=== PATIENT | female | born 1965 | race Caucasian/White ===

== ENCOUNTER 2017-03-04 09:53 | Emergency (ER) | payer BC ==
--- NOTE | 2017-03-04 10:07 | UC ---
Complaint Female HPI - HPI Summary HPI Summary: c/o dysuria, flank pain, hematuria for past few days. drinking but not much water at this time. not taking anything otc at this time. - History Of Current Complaint Chief Complaint: UCGU Stated Complaint: BLOOD IN URINE Time Seen by Provider: 03/04/17 10:02 Hx Obtained From: Patient Onset/Duration: Sudden Onset Timing: Constant Severity Initially: Moderate Character: Burning Aggravating Factor(s): Urination Associated Signs And Symptoms: Positive: Back Pain - Risk Factors Ectopic Risk Factor: Negative - Allergies/Home Medications Allergies/Adverse Reactions: Allergies Allergy/AdvReac Type Severity Reaction Status Date / Time Penicillin G Allergy Unknown Verified 03/04/17 10:05 Reaction Details Povidone Iodine Allergy Rash Verified 03/04/17 10:05 [From Betadine] PMH/Surg Hx/FS Hx/Imm Hx Previously Healthy: Yes Psychological History: Depression - insomnia - Surgical History Surgical History: Yes Surgery Procedure, Year, and Place: LAPAROSCOPY, [facility]. 03/2014 [place] [facility] [place] Social History Alcohol Use: Rare Substance Use Type: None Smoking Status (MU): Heavy Every Day Tobacco Smoker Type: Cigarettes Length of Time of Smoking/Using Tobacco: 37 YEARS Have You Smoked in the Last Year: Yes When Did the Patient Quit Smoking/Using Tobacco: 1/2 PACK PER DAY Review of Systems Constitutional: Negative Skin: Negative Eyes: Negative ENT: Negative Respiratory: Negative Cardiovascular: Negative Gastrointestinal: Negative Genitourinary: Dysuria, Hematuria, Frequency, Other - flank pain Neurovascular: Negative Is Patient Immunocompromised?: No All Other Systems Reviewed And Are Negative: Yes Physical Exam Triage Information Reviewed: Yes Appearance: Well-Appearing Vital Signs Reviewed: Yes Respiratory Exam: Normal Cardiovascular Exam: Normal Abdominal Exam: Normal Psychological Exam: Normal Skin Exam: Normal Complaint Female Dx - Course Course Of Treatment: urine culture + for UTI. take abx as directed - discussed use and common side effects of med. increase fluid intake while on abx to prevent dehydration. f/u pcp 1 week if symptoms not resolving or getting worse - Differential Dx/Diagnosis Provider Diagnoses: UTI Discharge - Discharge Plan Condition: Good Disposition: HOME Prescriptions: Sulfamethox/Trimethoprim DS* [Bactrim DS 800/160 TAB*] 1 tab PO BID 7 Days #14 tab Patient Education Materials: Urinary Tract Infection in Women (ED) Referrals: Tito Cisneros MD [Primary Care Provider] - 1 Week
[2017-03-04 10:09] VITALS: BP 122/77
== END 2017-03-04 10:40 | disposition home or self-care (01) ==
LOC: UCCORT 09:53
DX: N39.0 Urinary tract infection, site not specified (principal); B96.20 Unspecified Escherichia coli [E. coli] as the cause of diseases classified elsewhere; Z72.0 Tobacco use
CPT/HCPCS: 81003; 87077; 87086; 87186; 99212; G0463

== ENCOUNTER 2017-12-14 12:06 | Emergency (ER) | payer BC, OTHER ==
[2017-12-14 12:40] VITALS: BP 113/86
--- NOTE | 2017-12-14 12:59 | ED ---
Lower Extremity - HPI Summary HPI Summary: 52 yr old female with right knee pain. Location lateral right knee. Onset of pain 2 months ago. She was kneeling and states she felt a pop. She feels like her right knee cap is not stable all the time. No other complaints. Pain is moderate. no swelling, fever or bruising or redness. - History of Current Complaint Chief Complaint: UCLowerExtremity Stated Complaint: WC - RIGHT KNEE INJURY Time Seen by Provider: 12/14/17 12:38 Hx Last Menstrual Period: n/a Pain Intensity: 6 - Allergies/Home Medications Allergies/Adverse Reactions: Allergies Allergy/AdvReac Type Severity Reaction Status Date / Time Penicillins Allergy Unknown Verified 12/14/17 12:36 Reaction Details povidone-iodine Allergy Rash Verified 12/14/17 12:36 [From Betadine] soap [From Betadine] Allergy Rash Verified 12/14/17 12:36 Home Medications: Home Medications Amitriptyline TAB* [Elavil TAB*] 100 mg PO BEDTIME 12/14/17 [History Confirmed 12/14/17] PMH/Surg Hx/FS Hx/Imm Hx GI History: Reports: Hx Gastroesophageal Reflux Disease - CONTROL WITH MED Musculoskeletal History: Reports: Hx Arthritis - BACK Sensory History: Reports: Hx Contacts or Glasses - GLASSES FOR DRIVING Denies: Hx Hearing Aid Opthamlomology History: Reports: Hx Contacts or Glasses - GLASSES FOR DRIVING Neurological History: Comment Only: Other Neuro Impairments/Disorders - POST TRAUMATIC STRESS DISORDER (PTSD) Psychiatric History: Reports: Hx Anxiety - CONTROL WITH MEDS, Hx Depression - CONTROL WITH MEDS - Surgical History Surgery Procedure, Year, and Place: LAPAROSCOPY, [facility]. 03/2014 RIGHT ENDOSCOPIC CARPAL TUNNEL RELEASE, [facility] Hx Anesthesia Reactions: No Infectious Disease History: No Infectious Disease History: Denies: Traveled Outside the [place] in Last 30 Days - Family History Known Family History: Positive: None - Social History Alcohol Use: Rare Substance Use Type: Reports: None Smoking Status (MU): Heavy Every Day Tobacco Smoker Type: Cigarettes Amount Used/How Often: <1 PPD Length of Time of Smoking/Using Tobacco: 37 YEARS Have You Smoked in the Last Year: Yes Review of Systems Constitutional: Negative Positive: Other - right knee lateral pain All Other Systems Reviewed And Are Negative: Yes Physical Exam Triage Information Reviewed: Yes Vital Signs On Initial Exam: Initial Vitals Temp Pulse Resp BP Pulse Ox 98.4 F 74 14 113/86 99 12/14/17 12:33 12/14/17 12:33 12/14/17 12:33 12/14/17 12:33 12/14/17 12:33 Vital Signs Reviewed: Yes Appearance: Positive: Well-Appearing, No Pain Distress Skin: Positive: Warm, Skin Color Reflects Adequate Perfusion Head/Face: Positive: Normal Head/Face Inspection Eyes: Positive: EOMI ENT: Positive: Normal ENT inspection Neck: Positive: Nontender Respiratory/Lung Sounds: Positive: Clear to Auscultation, Breath Sounds Present Cardiovascular: Positive: RRR. Negative: Leg Edema Left, Leg Edema Right Abdomen Description: Negative: Distended Musculoskeletal: Positive: Strength/ROM Intact, Other - tender over the lateral knee, lateral collateral ligament right knee. Patella is stable. No joint effusion of the right knee. No redness, no increased warmth. Neurological: Positive: Sensory/Motor Intact, Alert, Oriented to Person Place, Time, CN Intact II-III Psychiatric: Positive: Normal - Abdulaziz Coma Scale Best Eye Response: 4 - Spontaneous Best Motor Response: 6 - Obeys Commands Best Verbal Response: 5 - Oriented Coma Scale Total: 15 Diagnostics - Vital Signs Vital Signs Temp Pulse Resp BP Pulse Ox 12/14/17 12:33 98.4 F 74 14 113/86 99 - Laboratory Lab Statement: Any lab studies that have been ordered have been reviewed, and results considered in the medical decision making process. - Radiology knee right Xray Interpretation: No Acute Changes Radiology Interpretation Completed By: Radiologist Lower Extremity Course/Dx - Course Course Of Treatment: 52 yr old with right knee pain. refer to ortho for further eval. - Diagnoses Provider Diagnoses: Sprain of collateral ligament of right knee Discharge - Sign-Out/Discharge Documenting (check all that apply): Patient Departure All imaging exams completed and their final reports reviewed: Yes - Discharge Plan Condition: Good Disposition: HOME Patient Education Materials: Knee Sprain (ED) Referrals: Tito Cisneros MD [Primary Care Provider] - Gio Lomas MD [Medical Doctor] - 2 Days - Billing Disposition and Condition Condition: GOOD Disposition: Home
--- NOTE | 2017-12-14 13:40 | RAD ---
INDICATION: Right knee pain. TECHNIQUE: 4 views of the right knee were obtained. FINDINGS: The bones are in normal alignment. No joint effusion or fracture is seen. Joint spaces appear maintained. IMPRESSION: NO EVIDENCE FOR FRACTURE.
== END 2017-12-14 14:03 | disposition home or self-care (01) ==
LOC: UCCORT 12:06
DX: S83.401A Sprain of unspecified collateral ligament of right knee, initial encounter (principal); X50.0XXA Overexertion from strenuous movement or load, initial encounter; Y93.89 Activity, other specified; Y92.9 Unspecified place or not applicable; Z88.0 Allergy status to penicillin; K21.9 Gastro-esophageal reflux disease without esophagitis; F17.210 Nicotine dependence, cigarettes, uncomplicated
CPT/HCPCS: 99211; G0463

== ENCOUNTER 2018-09-23 12:01 | Emergency (ER) | payer BC, OTHER ==
[2018-09-23 12:24] VITALS: BP 107/70
--- NOTE | 2018-09-23 12:34 | ED ---
Throat Pain/Nasal Congestion - HPI Summary HPI Summary: 53 yr old female with the complaint of stye lower right medial eyelid. Onset about two weeks ago, with initially a pimple on the outside lower medial eyelid , that drained some pus, but now on the inside of the eyelid area there is an inside stye that is persisting. No change in vision. - History of Current Complaint Chief Complaint: UCEye Time Seen by Provider: 09/23/18 12:18 - Allergies/Home Medications Allergies/Adverse Reactions: Allergies Allergy/AdvReac Type Severity Reaction Status Date / Time Penicillins Allergy Unknown Verified 09/23/18 12:19 Reaction Details povidone-iodine Allergy Rash Verified 09/23/18 12:19 [From Betadine] soap [From Betadine] Allergy Rash Verified 09/23/18 12:19 PMH/Surg Hx/FS Hx/Imm Hx GI History: Reports: Hx Gastroesophageal Reflux Disease - CONTROL WITH MED Musculoskeletal History: Reports: Hx Arthritis - BACK Sensory History: Reports: Hx Contacts or Glasses - GLASSES FOR DRIVING Denies: Hx Hearing Aid Opthamlomology History: Reports: Hx Contacts or Glasses - GLASSES FOR DRIVING Neurological History: Comment Only: Other Neuro Impairments/Disorders - POST TRAUMATIC STRESS DISORDER (PTSD) Psychiatric History: Reports: Hx Anxiety - CONTROL WITH MEDS, Hx Depression - CONTROL WITH MEDS - Surgical History Surgery Procedure, Year, and Place: LAPAROSCOPY, [facility]. 03/2014 RIGHT ENDOSCOPIC CARPAL TUNNEL RELEASE, [facility] Hx Anesthesia Reactions: No Infectious Disease History: No Infectious Disease History: Denies: Traveled Outside the [place] in Last 30 Days - Family History Known Family History: Positive: None - Social History Alcohol Use: Rare Substance Use Type: Reports: None Smoking Status (MU): Heavy Every Day Tobacco Smoker Type: Cigarettes Amount Used/How Often: <1 PPD Length of Time of Smoking/Using Tobacco: 37 YEARS Have You Smoked in the Last Year: Yes Review of Systems Constitutional: Negative Positive: Other - stye. Negative: Blurred Vision All Other Systems Reviewed And Are Negative: Yes Physical Exam Triage Information Reviewed: Yes Vital Signs On Initial Exam: Initial Vitals Temp Pulse Resp BP Pulse Ox 98.3 F 78 16 107/70 99 09/23/18 12:20 09/23/18 12:20 09/23/18 12:20 09/23/18 12:20 09/23/18 12:20 Vital Signs Reviewed: Yes Appearance: Positive: Well-Appearing, No Pain Distress Skin: Positive: Warm, Skin Color Reflects Adequate Perfusion Eyes: Positive: EOMI, FABI, Conjunctiva Inflammed - right only, Other: - chalazion lower right medial eyelid. No drainage. ENT: Positive: Normal ENT inspection Neck: Positive: Nontender Respiratory/Lung Sounds: Positive: Clear to Auscultation, Breath Sounds Present Cardiovascular: Positive: RRR. Negative: Murmur Abdomen Description: Negative: Distended Musculoskeletal: Positive: Strength/ROM Intact Neurological: Positive: Sensory/Motor Intact, Alert, Oriented to Person Place, Time, CN Intact II-III, Normal Gait, Speech Normal Psychiatric: Positive: Normal Diagnostics - Vital Signs Vital Signs Temp Pulse Resp BP Pulse Ox 09/23/18 12:20 98.3 F 78 16 107/70 99 - Laboratory Lab Statement: Any lab studies that have been ordered have been reviewed, and results considered in the medical decision making process. EENT Course/Dx - Course Course Of Treatment: 53 yr old with chalazion right lower medial eyelid. Rx Sulfa drops. - Diagnoses Provider Diagnoses: Chalazion of right lower eyelid Discharge - Sign-Out/Discharge Documenting (check all that apply): Patient Departure All imaging exams completed and their final reports reviewed: No Studies - Discharge Plan Condition: Good Disposition: HOME Prescriptions: Sulfacetamide 10 % OPTH.AURELIO* [Sulamyd 10% Opth*] 1 drop RIGHT EYE Q4H #1 btl Patient Education Materials: Doug (ED) Referrals: Tito Cisneros MD [Primary Care Provider] - Nelia Menezes MD [Medical Doctor] - 1 Day - Billing Disposition and Condition Condition: GOOD Disposition: Home
== END 2018-09-23 12:39 | disposition home or self-care (01) ==
LOC: UCCORT 12:01
DX: H00.12 Chalazion right lower eyelid (principal); K21.9 Gastro-esophageal reflux disease without esophagitis; F41.9 Anxiety disorder, unspecified; F32.9 Major depressive disorder, single episode, unspecified; F17.210 Nicotine dependence, cigarettes, uncomplicated
CPT/HCPCS: 99212; G0463

== ENCOUNTER 2019-06-11 11:37 | Emergency (ER) | payer BC, OTHER ==
[2019-06-11 12:13] VITALS: BP 109/73
--- NOTE | 2019-06-11 12:25 | UC ---
Respiratory Complaint HPI - HPI Summary HPI Summary: cough x 5 days cough is dry, worse with deep breathing, better with rest, nasal congestion , sore throat, post nasal drip no fever, + chills, body aches no known COVID19 contacts, no recent travels - History of Current Complaint Chief Complaint: UCRespiratory Stated Complaint: BODY ACHES, COUGH, SORE THROAT, FATIGUE Time Seen by Provider: 06/11/19 11:43 Hx Obtained From: Patient Hx Last Menstrual Period: n/a Onset/Duration: Gradual Onset, Lasting Days - 5, Still Present Timing: Constant Severity Initially: Moderate Severity Currently: Moderate Pain Intensity: 3 Character: Cough: Nonproductive Aggravating Factors: Exertion, Deep Breaths Associated Signs And Symptoms: Positive: Chills, URI. Negative: Fever, Wheezing - Allergies/Home Medications Allergies/Adverse Reactions: Allergies Allergy/AdvReac Type Severity Reaction Status Date / Time Penicillins Allergy Unknown Verified 06/11/19 11:54 Reaction Details povidone-iodine Allergy Rash Verified 06/11/19 11:54 [From Betadine] Home Medications: Home Medications Pregabalin [Lyrica] 25 mg PO TID 04/02/14 [History Confirmed 06/11/19] Acetaminophen [Acetaminophen Extra Strength] 1,000 mg PO Q6H PRN 06/11/19 [ History Confirmed 06/11/19] Sertraline* [Zoloft*] 200 mg PO BEDTIME 06/11/19 [History Confirmed 06/11/19] PMH/Surg Hx/FS Hx/Imm Hx - Additional Past Medical History Additional PMH: Anxiety, Depression, Fibromyalgia Psychological History: Anxiety, Depression - Surgical History Surgical History: Yes Surgery Procedure, Year, and Place: LAPAROSCOPY, [facility]. 03/2014 RIGHT ENDOSCOPIC CARPAL TUNNEL RELEASE, [facility] - Family History Known Family History: Positive: None, Non-Contributory - Social History Alcohol Use: Rare Substance Use Type: None Smoking Status (MU): Heavy Every Day Tobacco Smoker Type: Cigarettes Amount Used/How Often: ~ 1 PPD Length of Time of Smoking/Using Tobacco: Started Age 11 Have You Smoked in the Last Year: Yes When Did the Patient Quit Smoking/Using Tobacco: 1/2 PACK PER DAY Household Exposure Type: Cigarettes - Immunization History Most Recent Influenza Vaccination: 2017 Review of Systems All Other Systems Reviewed And Are Negative: Yes Constitutional: Positive: Chills. Negative: Fever Skin: Positive: Negative Is Patient Immunocompromised?: No Physical Exam Triage Information Reviewed: Yes Appearance: Well-Appearing, No Pain Distress, Well-Nourished Vital Signs: Initial Vital Signs Temp 97.1 F 06/11/19 12:12 Pulse 75 06/11/19 12:12 Resp 17 06/11/19 12:12 BP 109/73 06/11/19 12:12 Pulse Ox 97 06/11/19 12:12 Vital Signs Reviewed: Yes Eye Exam: Normal Eyes: Positive: Conjunctiva Clear ENT: Positive: Normal ENT inspection, Hearing grossly normal, Pharynx normal Neck: Positive: Supple, Nontender, No Lymphadenopathy Respiratory: Positive: Chest non-tender, Lungs clear, Normal breath sounds, No respiratory distress Cardiovascular: Positive: RRR, No Murmur, Pulses Normal Neurological Exam: Normal Skin Exam: Normal Respiratory Course/Dx - Differential Dx/Diagnosis Provider Diagnosis: URI (upper respiratory infection) Discharge ED - Sign-Out/Discharge Documenting (check all that apply): Patient Departure All imaging exams completed and their final reports reviewed: No Studies - Discharge Plan Condition: Stable Disposition: HOME Patient Education Materials: Upper Respiratory Infection (ED) Forms: COVID-19 Tested & Isolation Referrals: Tito Cisneros MD [Primary Care Provider] - - Billing Disposition and Condition Condition: STABLE Disposition: Home
--- NOTE | 2019-06-13 08:24 | UC ---
- Progress Note Progress Note: Covid 19 nasopharyngeal results from June 11, 2019 come back is undetected. Nursing to call patient inform them of the results. Course/Dx - Diagnoses Provider Diagnoses: URI (upper respiratory infection) Discharge ED - Sign-Out/Discharge Documenting (check all that apply): Patient Departure All imaging exams completed and their final reports reviewed: No Studies - Discharge Plan Condition: Stable Disposition: HOME Patient Education Materials: Upper Respiratory Infection (ED) Forms: COVID-19 Tested & Isolation Referrals: Tito Cisneros MD [Primary Care Provider] - - Billing Disposition and Condition Condition: STABLE Disposition: Home
== END 2019-06-11 12:29 | disposition home or self-care (01) ==
LOC: UCCORT 11:37
DX: J06.9 Acute upper respiratory infection, unspecified (principal); Z20.828 Contact with and (suspected) exposure to other viral communicable diseases; M79.7 Fibromyalgia; F41.9 Anxiety disorder, unspecified; F32.9 Major depressive disorder, single episode, unspecified; Z79.899 Other long term (current) drug therapy; Z88.3 Allergy status to other anti-infective agents; Z88.0 Allergy status to penicillin; F17.210 Nicotine dependence, cigarettes, uncomplicated
CPT/HCPCS: 87635; 99211; G0463; G2023